=== PATIENT | female | born 1955 | race Caucasian/White ===

== ENCOUNTER 2023-02-22 13:43 | Outpatient (AMB) | payer MEDICARE, OTHER, SELFPAY ==
[2023-02-22 13:50] VITALS: BP 90/50; PULSE 53; O2SAT 97; BMI 28.0
--- NOTE | 2023-02-22 13:50 | A.OFFVIS_ITS ---
Intake Vital Signs 02/22/23 13:50 Height 5 ft 5 in Weight 168 lb BMI 28.0 BP 90/50 L Blood Pressure Location Lt brachial Position Sitting Pulse 53 Pulse Source Pulse Oximeter Pulse Oximetry (%) 97 Oxygen Delivery Method Room Air Intake Visit Reasons: Pulmonary Nodules Intake Note: pt is here as a new patient and states back in August she went to [facility] for unable to get a good breath, there is a whole story that goes with that hospitalization and ended in [facility]. She has a hard time mostly at night, she had a sleep study but was told it was borderline. 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 TIME FOR PULMONARY EVALUATION THIS PATIENT HAS HISTORY OF SMOKING FROM AGE 15 TO AGE 39 , 1-1 AND HALF PACK OF CIGARETTES A DAY. LUCKILY SHE WAS ABLE TO QUIT 28 YEARS AGO. LATELY SHE STARTED HAVING SHORTNESS OF BREATH ON WALKING FAST AND SOMETIMES EVEN DURING THE DAY OR AT NIGHT WHEN SHE IS RESTING. IN AUGUST OF THIS YEAR SHE WAS SEEN AT THE EMERGENCY ROOM OF [facility] FOR SHORTNESS OF BREATH . AND TIGHT FEELING IN THE CHEST SHE WAS TOLD SHE HAD A QUESTIONABLE HEART ATTACK AT SOME POINT, SHE HAD ELEVATED LIVER ENZYMES AND ALSO RENAL INSUFFICIENCY. ONE MONTH LATER, IN SEPTEMBER SHE HAD GENERAL WEAKNESS AND BRADYCARDIA SEEN IN THE EMERGENCY ROOM OF [facility] AGAIN, WAS TOLD THAT SHE MAY HAVE IS SIDE EFFECT FROM MARIJUANA COOKIES AND USING LORAZEPAM AT THE SAME TIME. SHE WENT TO [facility] ON HER OWN, THERE SHE HAD A COMPLETE CARDIAC WORKUP WHICH TURNED OUT TO BE NORMAL. IS SLEEP STUDY WAS ORDERED WHICH WAS DONE AT [facility]EP [facility]. SHE WAS TOLD THAT SHE HAD A BORDERLINE SLEEP APNEA, BUT BECAUSE SHE HAS SYMPTOMS POOR SLEEP AT NIGHT, A CPAP HAS ALREADY BEEN ORDERED AND SHE IS AWAITING TO GET CPAP AND WILL START USING IT. SHE CLAIMS THAT HER SLEEP WAS POOR DURING THE SUMMER MONTHS BECAUSE OF HER SNORING LOUD AT NIGHT. SHE WAS GIVEN LORAZEPAM TO TAKE AT NIGHT TO HELP HER SLEEP. ALONG WITH THAT SHE WAS ALSO USING MARIJUANA COOKIES AT NIGHTTIME. BECAUSE SHE WAS NOT GETTING GOOD SLEEP AT NIGHT SHE FELT TIRED DURING THE DAYTIME. SHE ALSO HAD TENDENCY TO HAVE BRADYCARDIA. THYROID FUNCTION. WAS CHECKED AND CAME OUT NORMAL SHE IS BEING TREATED FOR HYPOTHYROIDISM WITH THYROID SUPPLEMENTATION. THE MAIN REASON FOR HER REFERRAL IS THAT CT SCAN OF THE CHEST PERFORMED IN NOVEMBER 2021 HAD SHOWN SOME PULMONARY NODULES IN THE RIGHT UPPER LOBE. WITH HER PAST HISTORY OF SMOKING IT WAS THE QUITE CONCERNING AND SHE WANTED TO HAVE A PULMONARY INPUT. [facility] Medical History (Updated 02/22/23 @ 15:32 by Bill Mckeon MD) Encounter for screening for malignant neoplasm of lung in current smoker with 30 pack year history or greater JIGAR (obstructive sleep apnea) Pulmonary nodules Dyspnea on exertion Social History Patient Tobacco Use Status: Former Tobacco user Years Smoked: 1994 Review of Systems Const All systems reviewed & are unremarkable except as noted in HPI and below Eyes Reports no additional complaints ENT Reports no additional complaints Card Denies chest pain, Reports dyspnea on exertion and Reports slow heart rate Resp Reports as per HPI and Reports dyspnea on exertion GI Reports heartburn (BEING TREATED FOR GERD) Musc Reports no additional complaints Skin/Breast Reports system reviewed and no additional complaints, except as documented Neuro Reports no additional complaints Psych Reports anxiety Endo Reports no additional complaints Abraham/Lymph Reports no additional complaints Aller/Immun Reports no additional complaints Physical Exam Vital Signs: Last Vital Signs Pulse 53 02/22/23 13:50 BP 90/50 L 02/22/23 13:50 Pulse Ox 97 02/22/23 13:50 Oxygen Delivery Method Room Air 02/22/23 13:50 BMI result Body Mass Index 28.0 Const General: healthy appearing, comfortable, no acute distress, alert and awake Orientation/consciousness: patient oriented x3 HEENT Head: Yes normal to inspection General nose exam: No nasal polyps present and No nasal discharge present Face and sinus: Yes sinuses nontender Mouth: oropharynx normal Throat: Yes posterior oropharynx normal Eyes General: appearance normal, both eyes and all related structures Neck Neck: Yes normal visual inspection, Yes no lymphadenopathy, Yes trachea midline and Yes no JVD Thyroid: Thyroid normal Chest Chest palpation & inspection: normal inspection of the chest, normal palpation of entire chest wall and no tenderness Resp Effort & Inspection: normal respiratory effort Auscultation: clear to auscultation bilaterally, no rhonchi and no wheezes Cardio Palpation: normal PMI Rate: regular rate Rhythm: regular rhythm Heart sounds: no gallops and no murmurs GI Palpation (GI): Soft to palpation, nontender, No hepatosplenomegaly present and no masses Auscultation: normal bowel sounds Back/Spine/Pelvis Thoracic/Lumbar Spine: thoracic and lumbar spine normal to inspection Skin General skin exam: no rashes or lesions noted Neuro General: patient oriented x3 and no focal motor deficits Cranial nerves: Yes CN's II-XII intact bilaterally Extrem General: Yes normal to inspection, Yes no clubbing, cyanosis or edema and Yes no calf tenderness Psych Appearance: grossly normal and well kempt Speech and movement: Normal speech and movement present Results Reviewed Results Reviewed: CT SCAN OF THE CHEST PERFORMED ON 12/12/2021 AT [facility] , REPORTED A 5 MM CALCIFIED PLEURAL BASED NODULAR OPACITY IN THE RIGHT UPPER LOBE LATERAL APEX. 2 ADDITIONAL SUB 5 MM SUB PLEURAL NONCALCIFIED OVAL-SHAPED NODULES WITHIN THE RIGHT UPPER LOBE IS CENTRAL TRY ANGULAR 5 MM OPACITY POSTERIOR TO THE RIGHT MAJOR FISSURE WITHIN THE RIGHT LOWER LOBE. Assessment & Plan Assessment & Plan (1) Dyspnea on exertion: Comment: Patient has nonspecific dyspnea on exertion and sometimes even at rest. Past history of smoking. SHE WILL BE EVALUATED WITH COMPLETE PULMONARY FUNCTION TEST. ADVISED TO DO DEEP BREATHING EXERCISES AND EXALE SLOWLY, IF SHE GETS ANY ATTACK OF SHORTNESS OF BREATH. AFTER THE PFT WILL DECIDE IF SHE NEEDS ANY BRONCHODILATOR INHALERS. Code(s): R06.09 - Other forms of dyspnea (2) Pulmonary nodules: Comment: PATIENT HAS PAST HISTORY OF SMOKING QUIT 28 YEARS AGO. THERE ARE SUB- 5 MM NODULES IN RIGHT UPPER LOBE , 1 CALCIFIED. EVEN THOUGH SHE IS NOT SMOKING AT PRESENT, I THINK WE WILL GET CT SCAN 1 MORE TIME TO MAKE SURE ABOUT THE PULMONARY NODULES. Code(s): R91.8 - Other nonspecific abnormal finding of lung field (3) JIGAR (obstructive sleep apnea): Comment: PATIENT HAS HISTORY OF WAKING UP AT NIGHT WITH SHORTNESS OF BREATH. THIS RAISES A QUESTION OF OBSTRUCTIVE SLEEP APNEA. PATIENT HAS BEEN SEEN AT [facility], OUTPATIENT CARDIOLOGY. SHE HAD A SLEEP STUDY AT TO [facility], TOLD THAT SHE HAS MILD JIGAR. BUT IS CPAP HAS BEEN ORDERED ANYWAY, SHE WILL BE FOLLOWED UP BY [facility]. Code(s): G47.33 - Obstructive sleep apnea (adult) (pediatric) Orders: Orders PFT pulmonary function test Today F17.200 - Nicotine dependence, unspecified, uncomplicated, G47.33 - Obstructive sleep apnea (adult) (pediatric), R06.09 - Other forms of dyspnea, R91.8 - Other nonspecific abnormal finding of lung field, Z12.2 - Encounter for screening for malignant neoplasm of respiratory organs CT chest wo IV con Today R91.8 - Other nonspecific abnormal finding of lung field Coding Level of Care Code New Pt Level 4 (38617) Diagnoses Dyspnea on exertion R06.09 Pulmonary nodules R91.8 JIGAR (obstructive sleep apnea) G47.33
== END 2023-02-22 14:37 | disposition home or self-care (01) ==
PROVIDERS: PCP Physician Assistant Medical; Referring Provider Physician Assistant Medical; Visit Provider Internal Medicine
DX: R06.09 Other forms of dyspnea (principal); R91.8 Other nonspecific abnormal finding of lung field; G47.33 Obstructive sleep apnea (adult) (pediatric)
CPT/HCPCS: 99204

== ENCOUNTER → 2023-02-22 13:43 | Outpatient (BNVA) | payer MEDICARE, SELFPAY | PROVIDERS: PCP Physician Assistant Medical; Referring Provider Physician Assistant Medical; Visit Provider Internal Medicine ==

== ENCOUNTER 2023-04-04 15:00 | Outpatient (REF) | payer MEDICARE, OTHER, SELFPAY ==
--- NOTE | ~2023-04-04 | CT_ITS ---
EXAMINATION: CT CHEST WITHOUT CONTRAST CLINICAL INFORMATION: Pulmonary nodule COMPARISON: None available. TECHNIQUE: Multidetector volumetric CT imaging of the chest was done. Axial MIP volume rendering provided. Sagittal and coronal reformatted images were obtained. This CT examination was performed using dose optimization techniques as appropriate, variously including the following: *Automated exposure control *Adjustment of mA and/or kV according to patient size (this includes techniques or standardized protocols for targeted exams where dose is matched to indication/reason for exam; i.e. extremities or head) *Use of iterative reconstruction technique DLP: 152.36 mGy-cm FINDINGS: LUNGS: Plaque-like subpleural fibrotic scar is seen at posterior superior border of right lung apex, series 5 image #64, series 7 image #84. Fibrotic thickening of lower left major fissure is seen. -Nodule #1 (Series 5, image 121): 3.8 mm solid nodule, posterior lateral pleural border of right upper lobe apical segment. -Nodule #2 (Series 5, image 152): 4.3 mm solid juxtapleural nodule, anterior lateral pleural border of right upper lobe apical segment. -Nodule #3 (Series 5, image 213): 4.8 mm solid nodule, anterior lateral pleural border of right upper lobe anterior segment. PLEURA: No pleural effusion or pneumothorax is seen. PERICARDIUM: No pericardial effusion is seen. MEDIASTINUM AND DEON: Inadequate evaluation of the mediastinal and hilar lymph nodes due to absence of IV contrast filling the surrounding blood vessels. TRACHEOBRONCHIAL TREE: Trachea and bilateral mainstem bronchi are patent. THORACIC AORTA: The thoracic aorta is normal in size and smooth in outline. CORONARY ARTERY CALCIFICATIONS: None PULMONARY ARTERIES: The main pulmonary arteries appear to be normal in size. CHEST WALL AND LOWER NECK: The subcutaneous and muscular chest wall are intact with no focal lesion. No abnormal mass lesion could be seen in the visualized lower neck. BONES: No fracture or dislocation. No focal bone lesion diagnostic of metastatic disease could be seen in the thorax. VISUALIZED UPPER ABDOMEN: Bilateral adrenal glands are not enlarged. CT/CT chest wo IV con IMPRESSION: 1. Multiple solid nodules, as described above, the largest measuring 4.8 mm. According to the UPDATED 2017 Fleischner Society recommendations, the advised follow-up imaging for nodules <6mm in the upper lobes is not necessarily required in low-risk patients. In high-risk patients with a nodule in the upper lobe and/or demonstrating suspicious morphology, an optional CT follow-up at 12 months may be obtained. If stable at 12 months, no further follow-up is recommended. 2. Plaque-like subpleural fibrotic scar is seen at posterior superior border of right lung apex. Fleischner guidelines were followed.
== END 2023-04-04 15:01 | disposition home or self-care (01) ==
LOC: HO.CT 15:00
PROVIDERS: Visit Provider Internal Medicine
DX: R91.8 Other nonspecific abnormal finding of lung field (principal)
CPT/HCPCS: 71250

== ENCOUNTER 2023-05-17 10:59 | Outpatient (REF) | payer MEDICARE, OTHER, SELFPAY ==
--- NOTE | 2023-05-17 13:30 | PFT_ITS ---
Flows: FEV1: 102% of predicted at 2.42 L FVC: 105% of predicted at 3.20L FEV1/FVC: 76 % Bronchodilator response: Absent Volumes: Total lung capacity: 91 % of predicted at 4.72 L Residual volume: 78 % of predicted at 1.51 L Slow vital capacity: 99 % of predicted at 3.20 L Expiratory reserve volume: 83 % of predicted at 0.65 L Diffusion capacity: Normal Impression: No obstructive or restrictive ventilatory defect. No bronchodilator response. Normal pulmonary function test. MTDD
== END 2023-05-17 11:00 | disposition home or self-care (01) ==
LOC: HO.RESP 10:59
PROVIDERS: PCP Physician Assistant Medical; Visit Provider Internal Medicine
DX: R91.8 Other nonspecific abnormal finding of lung field (principal); R06.09 Other forms of dyspnea; G47.33 Obstructive sleep apnea (adult) (pediatric); F17.200 Nicotine dependence, unspecified, uncomplicated
CPT/HCPCS: 94010; 94727; 94729

== ENCOUNTER → 2023-05-17 13:30 | Outpatient (BNV) | payer MEDICARE, OTHER, SELFPAY | PROVIDERS: PCP Physician Assistant Medical; Visit Provider Internal Medicine Pulmonary Disease | DX: R06.09 Other forms of dyspnea (principal) | CPT/HCPCS: 94060; 94727; 94729 ==

== ENCOUNTER 2023-05-23 13:50 | Outpatient (AMB) | payer MEDICARE, OTHER, SELFPAY ==
[2023-05-23 13:59] VITALS: BP 102/58; PULSE 60; O2SAT 100; BMI 27.7
--- NOTE | 2023-05-23 13:59 | MHC.OFFVIS ---
Intake Vital Signs 05/23/23 13:59 Height 5 ft 5 in Weight 166 lb 7.184 oz BMI 27.7 BP 102/58 L Blood Pressure Location Lt brachial Position Sitting Pulse 60 Pulse Source Pulse Oximeter Pulse Oximetry (%) 100 Oxygen Delivery Method Room Air Intake Visit Reasons: S/p pft Intake Note: pt is here for follow up of pft and and ct scan results Hydrographical Technical Officer Required: No Allergies codeine Allergy (Severe, Verified 05/23/23 14:19) stomach pain Medication List - Last Reconciled 05/23/23 by Bill Mckeon MD atorvastatin 10 mg PO BEDTIME fluticasone propionate 50 mcg/actuation 1 spray intranasal DAILY PRN levothyroxine mcg PO lorazepam 1 mg PO DAILY PRN pantoprazole (Protonix) 40 mg PO DAILY Do you need a note to return to daycare/school/sports/work: No HPI S/p pft HPI Details 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 SHE HAS HISTORY OF SMOKING ONLY IN THE REMOTE PAST. SHE HAS NO SYMPTOM OF SHORTNESS OF BREATH OR COUGH. SHE WAS DIAGNOSED TO HAVE MILD JIGAR AT [facility], PROVIDED WITH CPAP DEVICE BUT SHE DID NOT LIKE IT. SHE CLAIMS THAT SHE SLEEPS WELL WITHOUT ANY DEVICE. HER USES CPAP SO DOES NOT SNORE ANY MORE, AND THAT HAS HELPED HER TO SLEEP WELL. SHE SHE HAS UNDERGONE THE ORDERED TO PULMONARY TESTS, WILL BE DESCRIBED BELOW. [facility] Medical History Encounter for screening for malignant neoplasm of lung in current smoker with 30 pack year history or greater JIGAR (obstructive sleep apnea) Pulmonary nodules Dyspnea on exertion Social History Patient Tobacco Use Status: Former Tobacco user Years Smoked: 1994 Review of Systems Const All systems reviewed & are unremarkable except as noted in HPI and below Eyes Reports no additional complaints ENT Reports no additional complaints Card Denies chest pain, Reports dyspnea on exertion and Reports slow heart rate Resp Reports as per HPI and Reports dyspnea on exertion GI Reports heartburn (BEING TREATED FOR GERD) Musc Reports no additional complaints Skin/Breast Reports system reviewed and no additional complaints, except as documented Neuro Reports no additional complaints Psych Reports anxiety Endo Reports no additional complaints Abraham/Lymph Reports no additional complaints Aller/Immun Reports no additional complaints Physical Exam Const General: healthy appearing, comfortable, no acute distress, alert and awake Orientation/consciousness: patient oriented x3 HEENT Head: Yes normal to inspection General nose exam: No nasal polyps present and No nasal discharge present Face and sinus: Yes sinuses nontender Mouth: oropharynx normal Throat: Yes posterior oropharynx normal Eyes General: appearance normal, both eyes and all related structures Neck Neck: Yes normal visual inspection, Yes no lymphadenopathy, Yes trachea midline and Yes no JVD Thyroid: Thyroid normal Chest Chest palpation & inspection: normal inspection of the chest, normal palpation of entire chest wall and no tenderness Resp Effort & Inspection: normal respiratory effort Auscultation: clear to auscultation bilaterally, no rhonchi and no wheezes Cardio Palpation: normal PMI Rate: regular rate Rhythm: regular rhythm Heart sounds: no gallops and no murmurs GI Palpation (GI): Soft to palpation, nontender, No hepatosplenomegaly present and no masses Auscultation: normal bowel sounds Back/Spine/Pelvis Thoracic/Lumbar Spine: thoracic and lumbar spine normal to inspection Skin General skin exam: no rashes or lesions noted Neuro General: patient oriented x3 and no focal motor deficits Cranial nerves: Yes CN's II-XII intact bilaterally Extrem General: Yes normal to inspection, Yes no clubbing, cyanosis or edema and Yes no calf tenderness Psych Appearance: grossly normal and well kempt Speech and movement: Normal speech and movement present Results Reviewed Results Reviewed: 04/04/23 CT. SCAN OF chest 1. Multiple solid nodules, as described above, the largest measuring 4.8 mm. According to the UPDATED 2017 Fleischner Society recommendations, the advised follow-up imaging for nodules <6mm in the upper lobes is not necessarily required in low-risk patients. In high-risk patients with a nodule in the upper lobe and/or demonstrating suspicious morphology, an optional CT follow-up at 12 months may be obtained. If stable at 12 months, no further follow-up is recommended. 2. Plaque-like subpleural fibrotic scar is seen at posterior superior border of right lung apex. PULM. FUNCTION TEST : ON 05/17/23 NORMAL , NO OBSTRUCTIVE OR RESTRICTIVE PULMONARY DISORDER. Assessment & Plan Assessment & Plan (1) Pulmonary nodules: Comment: PATIENT HAS PAST HISTORY OF SMOKING QUIT 28 YEARS AGO. THERE ARE SUB- 5 MM NODULES IN RIGHT UPPER LOBE , [address] SCAN SHOWS HE SMILE DISCRETE NODULAR DENSITY, 4.8 MM IN SIZE IN RIGHT UPPER LOBE. PATIENT IS CONSIDERED TO BE AT LOW RISK BECAUSE SHE QUIT SMOKING 28 YEARS AGO. Code(s): R91.8 - Other nonspecific abnormal finding of lung field Plan: EXPLAINED TO THE PATIENT THE FINDINGS, EXPLAINED ABOUT THE CURRENT GUIDELINES. SHE IS A LOW RISK CASE AND DOES NOT NEED ANY FURTHER FOLLOW-UP CT SCANS. (2) Dyspnea on exertion: Comment: Patient had nonspecific dyspnea on exertion and sometimes even at rest. Pulmonary function test is essentially normal and there is no evidence of obstructive airway disorder or restrictive lung disease. According to the patient dyspnea has actually resolved. She does use lorazepam 1 mg p.r.n. for anxiety Code(s): R06.09 - Other forms of dyspnea Plan: Explained to the patient and reassured. No need of any bronchodilator inhalers. (3) JIGAR (obstructive sleep apnea): Comment: PATIENT HAS HISTORY OF WAKING UP AT NIGHT WITH SHORTNESS OF BREATH. THIS RAISES A QUESTION OF OBSTRUCTIVE SLEEP APNEA. PATIENT HAS BEEN SEEN AT [facility], OUTPATIENT CARDIOLOGY. SHE HAD A SLEEP STUDY AT TO [facility], TOLD THAT SHE HAS MILD JIGAR. BUT IS CPAP HAS BEEN ORDERED ANYWAY, SHE WILL BE FOLLOWED UP BY [facility]. UP-DATE : She tried CPAP, did not like it, gave up using it. She claims that now she sleeps well. Does use lorazepam 1 mg p.r.n. Code(s): G47.33 - Obstructive sleep apnea (adult) (pediatric) Plan: as above Coding Level of Care Code Est Pt Level 3 (09431) Diagnoses Pulmonary nodules R91.8 Dyspnea on exertion R06.09 JIGAR (obstructive sleep apnea) G47.33
== END 2023-05-23 14:15 | disposition home or self-care (01) ==
PROVIDERS: PCP Physician Assistant Medical; Visit Provider Internal Medicine
DX: R91.8 Other nonspecific abnormal finding of lung field (principal); R06.09 Other forms of dyspnea; G47.33 Obstructive sleep apnea (adult) (pediatric)
CPT/HCPCS: 99213

== ENCOUNTER → 2023-05-23 13:50 | Outpatient (BNVA) | payer MEDICARE, OTHER, SELFPAY | PROVIDERS: PCP Physician Assistant Medical; Visit Provider Internal Medicine | DX: R91.8 Other nonspecific abnormal finding of lung field (principal); R06.09 Other forms of dyspnea; G47.33 Obstructive sleep apnea (adult) (pediatric) | CPT/HCPCS: 99212 ==